=== PATIENT | male | born 1990 | race Caucasian/White ===

== ENCOUNTER 2024-12-22 12:17 | Emergency (ER) | payer SELFPAY ==
[2024-12-22 12:18] VITALS: BP 162/104; PULSE 122; RESP 18; TEMP 37.1; O2SAT 100; BMI 27.6
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
[2024-12-22] MEDS: 0.9% Normal Saline (500mL Bag) 500 ML 999 ML IV (13:04)
[2024-12-22 13:21] LABS: Hematocrit 43.6 % (40-54); Hemoglobin 15.1 g/dL (13.0-16.5); Immature Granulocytes Count 0.050 X10^3/uL (0.0-0.0); Mean Corp Hgb Conc 34.6 g/dL (32-36); Mean Corpuscular Volume 90.3 fL (80-94); Mean Platelet Vol. 9.2 fl (6.2-12.0); NRBC Flagged by Analyzer 0 % (0-5); Platelet Count 382 K/mm3 (150-450); RBC Distribution Width CV 13.2 % (11.6-14.6); RBC Distribution Width SD 43.3 fl (35.1-43.9); Red Blood Count 4.83 M/mm3 (4.6-6.2); White Blood Count 10.6 K/mm3 (4.4-11.0)
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
[2024-12-22 13:33] LABS: Partial Thromboplast Time 24.3 Seconds (24.1-36.2); Prothrombin Time (Protime)PT. 13.1 SECONDS (11.7-14.9)
[2024-12-22 14:10] LABS: Anion Gap 14 (5-15); BUN 10 mg/dL (4-19); BUN/Creat Ratio 9.4 RATIO (10-20); Calcium,Total 9.6 mg/dL (7.6-11.0); Carbon Dioxide 21.7 mmol/L (21.0-32.0); Chloride 102 mmol/L (98-108); Estimated Creatinine Clearance 106.59 ml/min (50-250); Glucose 119 mg/dL (70-99); Potassium 4.2 mmol/L (3.3-5.1)
[2024-12-22 14:38] VITALS: BP 167/106; PULSE 97; RESP 18; TEMP 36.3; O2SAT 98
== END 2024-12-22 14:40 | disposition home or self-care (01) ==
PROVIDERS: Emergency Provider Emergency Medicine; Visit Provider Emergency Medicine
DX: S00.81XA Abrasion of other part of head, initial encounter (principal); S30.811A Abrasion of abdominal wall, initial encounter; S20.419A Abrasion of unspecified back wall of thorax, initial encounter; S50.812A Abrasion of left forearm, initial encounter; S46.811A Strain of other muscles, fascia and tendons at shoulder and upper arm level, right arm, initial encounter; V89.2XXA Person injured in unspecified motor-vehicle accident, traffic, initial encounter; G93.0 Cerebral cysts; Z23 Encounter for immunization
CPT/HCPCS: 70450; 71260; 72125; 73030; 74177; 80048; 85025; 85610; 85730; 90471; 90715; 96360; 99283; Q9967; A4216